=== PATIENT | female | born 1935 | race Caucasian/White ===

== ENCOUNTER → 2018-03-03 | Outpatient (CLI) | payer MEDICARE ==
--- NOTE | 2018-03-03 11:08 | RAD ---
Examination: Bilateral Lower Extremity Venous Doppler Ultrasound History: Bilateral leg edema Comparison: None Procedure: Raymond scale, color flow 2D and spectal waveform analysis images are obtained with and without compression in the area of the common femoral vein, superficial femoral vein - femoral vein junction, main femoral vein (superficial femoral vein) and popliteal vein. Veins of the proximal calf are also imaged. Findings: There is normal duplex flow, color flow and compressibility of all visualized vein segments. No evidence of deep venous thrombus is present. Impression: No evidence of DVT in the visualized bilateral lower extremity venous system. Electronically signed by: Yaya Barcenas MD (03/03/2018 11:04 AM) [facility]
== END | disposition home or self-care (01) ==
LOC: US 09:35
PROVIDERS: ATTEND Family Medicine
DX: R60.0 Localized edema (principal); I10 Essential (primary) hypertension
CPT/HCPCS: 93970

== ENCOUNTER → 2018-03-15 | Outpatient (CLI) | payer MEDICARE ==
[~2018-03-15] MED LIST: IOHEXOL 300 MG/ML 75 ML VIAL. IV ONE
--- NOTE | 2018-03-15 13:10 | RAD ---
CTA chest with contrast Indication: Increased D-Dimer. No SOA or surgery to chest. OMNI 300 75ml . Comparison: No comparison is available. Technique: After intravenous contrast administration, CT imaging was performed of the chest. MIP reconstructions were obtained. Exposure: One or more of the following individualized dose reduction techniques were utilized for this examination: 1. Automated exposure control 2. Adjustment of the mA and/or kV according to patient size 3. Use of iterative reconstruction technique. FINDINGS: Pulmonary arteries: Central arteries are mildly dilated or ectatic. Thoracic aorta: No evidence of aortic aneurysm. Aorta is mildly calcified and ectatic. Due to bolus timing, the aorta is not adequately opacified with contrast to exclude dissection. Thyroid gland: Slightly asymmetric. The right lobe is slightly larger and extends further posterior. Lymph nodes:No significant enlargement Heart: Enlarged. Esophagus: Mild wall thickening. Moderate hiatal hernia. Pleural spaces: No significant effusion Lungs: Mild linear markings compatible with atelectasis or fibrosis. Mild biapical pleural and parenchymal irregularity or scarring. Intrapulmonary bullae at the left lower lobe. Trachea and central airways: Patent Bones: Degenerative spondylosis. Mild anterior loss of height of a midthoracic vertebral body, likely a chronic fracture, as there are no signs of an acute fracture. Upper abdomen: Slices through the upper abdomen are limited due to the technique . There are couple of small subcentimeter low-density lesions of the liver, too small to characterize but would most commonly be benign. IMPRESSION: 1. No evidence of pulmonary embolism. 2. Moderate hiatal hernia. Mild esophageal wall thickening nonspecific, could indicate esophagitis or scarring. Electronically signed by: Luis Quintero MD (03/15/2018 1:06 PM) [facility]
== END | disposition home or self-care (01) ==
LOC: CT 12:14
PROVIDERS: ATTEND Family Medicine
DX: K44.9 Diaphragmatic hernia without obstruction or gangrene (principal); M47.894 Other spondylosis, thoracic region; I77.810 Thoracic aortic ectasia; I10 Essential (primary) hypertension
CPT/HCPCS: 71275; Q9967

== ENCOUNTER → 2019-02-23 | Outpatient (CLI) | payer MEDICARE ==
--- NOTE | 2019-02-23 17:00 | RAD ---
CT LUMBAR SPINE WO CONTRAST Indication: Low back pain Technique: Noncontrast CT imaging was performed of the lumbar spine, multiplanar reconstruction images submitted. One or more of the following individualized dose reduction techniques were utilized for this examination: 1. Automated exposure control 2. Adjustment of the mA and/or kV according to patient size 3. Use of iterative reconstruction technique. Comparison: None Findings: There is lfms-fz-makarzom levoscoliosis centered upon the mid lumbar spine. Lumbar vertebral body stature is maintained. AP alignment is within normal limits. There is relative bone demineralization. There is variable moderate to severe degenerative disc disease greater on the left at L5-S1, also moderate to severe degenerative disc disease at L2-3 and to lesser degree L1-2, L3-4, L4-5. There is sigmoid diverticulosis. There is likely cyst of the posterior right lobe of liver. T12-L1: Spinal canal and neural foramina are adequate. There is mild facet degenerative change. L1-2: There is minimal disc osteophyte complex. There is mild to moderate facet degenerative change. Spinal canal is not significantly narrowed. There is mild to moderate narrowing of the right neural foramen by facet, left neural foramen adequate. L2-3: There is moderate facet hypertrophic change. There is very minimal disc osteophyte complex. Spinal canal is not significantly narrowed, probable minimal narrowing of the right lateral recess. There is very mild posterior narrowing of the right neural foramen by facet, left neural foramen adequate. L3-4: There is moderate facet hypertrophic change. There is minimal disc osteophyte complex. There is likely mild narrowing of the far lateral recesses bilaterally. There is moderate narrowing of the left neural foramen from posteriorly by facet, mild narrowing on the right. L4-5: There is moderate facet hypertrophic change somewhat greater on the left. There is very minimal disc osteophyte complex/partially calcified bulge. There is mild narrowing of the far left lateral recess. Right neural foramen is adequate, moderate to severe narrowing of the left neural foramen primarily from posteriorly by facet. L5-S1: There is mild buckling of the ligamentum flavum and gtba-op-[id number] facet hypertrophic change. There is minimal disc osteophyte complex. Right neural foramen is adequate. There is mild narrowing of the left neural foramen, contact of the exiting left L5 nerve root by disc osteophyte complex extending to extraforaminal region. IMPRESSION: 1. There is lumbar levoscoliosis. There is multilevel variable degenerative disc disease. There is likely mild narrowing of the lateral recesses as stated such as on the right at L2-3, bilaterally at L3-4, and on the left at L4-5. There is neural foramina compromise as stated most notable on the left at L4-5. 2. There is sigmoid diverticulosis. 3. There is bone demineralization. Electronically signed by: Talon Delgado MD (02/23/2019 4:57 PM) [facility]
== END | disposition home or self-care (01) ==
LOC: CT 12:31
PROVIDERS: ATTEND Physician Assistant
DX: M51.37 Other intervertebral disc degeneration, lumbosacral region (principal); M47.816 Spondylosis without myelopathy or radiculopathy, lumbar region; M48.07 Spinal stenosis, lumbosacral region; M25.78 Osteophyte, vertebrae; M89.38 Hypertrophy of bone, other site; M41.86 Other forms of scoliosis, lumbar region; K57.30 Diverticulosis of large intestine without perforation or abscess without bleeding; M53.88 Other specified dorsopathies, sacral and sacrococcygeal region; M53.3 Sacrococcygeal disorders, not elsewhere classified
CPT/HCPCS: 72131

== ENCOUNTER 2019-03-25 15:16 | Emergency (ER) | payer MEDICARE ==
[~2019-03-25] VITALS: Ht 165.1 cm; Wt 67.8 kg
[2019-03-25] MEDS ORDERED: ONDANSETRON PF 4 MG/2 ML VIAL. IV ONE (16:00)
--- NOTE | 2019-03-25 16:06 | RAD ---
Examination: HIP LEFT 2V WITH PELVIS History: Fall, pain Comparison/Correlation: None Findings: Frontal view pelvis, frontal view left hip and crosstable lateral views of the left upper obtained. Total 4 images provided. Osteopenia noted. Oblique fracture involving the left intertrochanteric region appears be present on the basis of the frontal views provided. This finding is well delineated on the crosstable lateral views but is suspected to be anterior in location. Hip joint spaces are symmetric. Sacroiliac joint spaces are symmetric. Impression: Oblique nondisplaced left intertrochanteric fracture appears to be present. Consider further imaging for confirmation of clinically desired. Electronically signed by: Justin Garner MD (03/25/2019 4:03 PM) [facility]
--- NOTE | 2019-03-25 16:20 | PHYS DOC ---
Past History Past Medical History: Bronchitis, Cancer, COPD, Hypertension Past Surgical History: Cancer Surgery, Tonsillectomy Smoking: Non-smoker Alcohol Use: None Drug Use: None Adult General Chief Complaint Chief Complaint: HIP PAIN HPI HPI 83-year-old female presents after fall at home with left hip pain. 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 She was at home and turned to go to another room and she just fell. She denies passing out. She landed on her left side. She was unable to get up off the floor because of significant pain in her left hip. She continued to have her pain for EMS and on arrival to the ED. She denies loss of consciousness or hitting her head. She is not complaining of any other injuries. Review of Systems Review of Systems Constitutional: Denies fever or chills [] Eyes: Denies change in visual acuity, redness, or eye pain [] HENT: Denies nasal congestion or sore throat [] Respiratory: Denies cough or shortness of breath [] Cardiovascular: No additional information not addressed in HPI [] GI: Denies abdominal pain, nausea, vomiting, bloody stools or diarrhea [] : Denies dysuria or hematuria [] Musculoskeletal: Left hip pain[] Integument: Denies rash or skin lesions [] Neurologic: Denies headache, focal weakness or sensory changes [] Endocrine: Denies polyuria or polydipsia [] All other systems were reviewed and found to be within normal limits, except as documented in this note. Current Medications Current Medications Current Medications Medications (Trade) Dose Ordered Sig/Rena Start Time Stop Time Status Last Admin Dose Admin Fentanyl Citrate (Fentanyl 2ml Vial) 75 mcg 1X ONCE 03/25/19 16:00 03/25/19 16:01 DC 03/25/19 16:02 75 MCG Ondansetron HCl (Zofran) 4 mg 1X ONCE 03/25/19 16:00 03/25/19 16:01 DC 03/25/19 16:02 4 MG Allergies Allergies Allergies Coded Allergies Type Severity Reaction Last Updated Verified Sulfa (Sulfonamide Antibiotics) Allergy Intermediate RASH 02/21/14 Yes Physical Exam Physical Exam Constitutional: Well developed, well nourished, no acute distress, non-toxic appearance. [] HENT: Normocephalic, atraumatic, bilateral external ears normal, oropharynx moist, no oral exudates, nose normal. [] Eyes: PERRLA, EOMI, conjunctiva normal, no discharge. [] Neck: Normal range of motion, no tenderness, supple, no stridor. [] Cardiovascular:Heart rate regular rhythm, no murmur [] Lungs & Thorax: Bilateral breath sounds clear to auscultation [] Abdomen: Bowel sounds normal, soft, no tenderness, no masses, no pulsatile kirk s. [] Skin: Warm, dry, no erythema, no rash. [] Back: No tenderness, no CVA tenderness. [] Extremities: Pain with tenderness of the left hip, no obvious deformity.[] Neurologic: Alert and oriented X 3, normal motor function, normal sensory function, no focal deficits noted. [] Psychologic: Affect normal, judgement normal, mood normal. [] Current Patient Data Vital Signs Vital Signs Date Time Temp Pulse Resp B/P (MAP) Pulse Ox O2 Delivery O2 Flow Rate FiO2 03/25/19 16:02 18 03/25/19 15:17 98.0 57 98 Room Air EKG EKG [] Radiology/Procedures Radiology/Procedures [] Course & Med Decision Making Course & Med Decision Making Pertinent Labs and Imaging studies reviewed. (See chart for details) The patient has a left intertrochanteric fracture that is nondisplaced of left femur. The patient would prefer to go to [place] if possible. I will consult the orthopedic surgeon at [facility]. I discussed the patient with Dr. Friedman and he has accepted the patient for orthopedics. We will contact the hospitalist for admission. Dr. Arias has accepted the patient for transfer and admission to [facility]. She will go by ambulance. [] Dragon Disclaimer Dragon Disclaimer This electronic medical record was generated, in whole or in part, using a voice recognition dictation system. Departure Departure: Impression: Primary Impression: Fracture, intertrochanteric, left femur Disposition: [facility] HOSP Condition: STABLE Referrals: ZOFIA SOL MD (PCP) Problem Qualifiers Primary Impression: Fracture, intertrochanteric, left femur Encounter type: initial encounter Fracture type: closed Fracture alignment: nondisplaced Qualified Codes: S72.145A - Nondisplaced intertrochanteric fracture of left femur, initial encounter for closed fracture MONICA HINOJOSA DO Mar 25, 2019 16:20
[2019-03-25 16:21] LABS: BASO % 1 % (0-3); EOS # 0.1 x10^3/uL (0.0-0.7); EOS % 1 % (0-3); HEMATOCRIT 36.4 % (36.0-47.0); HEMOGLOBIN 12.3 g/dL (12.0-15.5); LYMPH # 2.5 x10^3/uL (1.0-4.8); LYMPH % 28 % (24-48); MEAN CORPUSCULAR HEMOGLOBIN 31 pg (25-35); MEAN CORPUSCULAR HGB CONC 34 g/dL (31-37); MEAN CORPUSCULAR VOLUME 91 fL (79-100); MONO # 0.5 x10^3/uL (0.0-1.1); MONO % 6 % (0-9); NEUT # 5.7 x10^3uL (1.8-7.7); NEUT % 64 % (31-73); PLATELET COUNT 254 x10^3/uL (140-400); RED BLOOD COUNT 3.99 x10^6/uL (3.50-5.40); WHITE BLOOD COUNT 8.9 x10^3/uL (4.0-11.0)
--- NOTE | 2019-03-25 16:24 | RAD ---
Examination: CT LOWER EXTREMITY WO LEFT History: Left hip fracture Comparison/Correlation: 03/25/2019 frontal view of pelvis with two-view left hip x-ray exam Findings: Axial images of the left hip were obtained. Sagittal and coronal reformatted images were provided. Nondisplaced fracture of the anterior left intertrochanteric cortex is identified Left hip joint spaces are unremarkable. Visualized soft tissues including musculature is unremarkable. Diverticulosis of the colon is incidentally seen. Sacroiliac joints are symmetric. Osteitis pubis noted. Impression: Nondisplaced acute fracture of the anterior left intertrochanteric trochanteric cortex. PQRS Compliance Statement: One or more of the following individualized dose reduction techniques were utilized for this examination: 1. Automated exposure control 2. Adjustment of the mA and/or kV according to patient size 3. Use of iterative reconstruction technique Electronically signed by: Justin Garner MD (03/25/2019 4:21 PM) [facility]
[2019-03-25 16:27] LABS: ALBUMIN 3.1 g/dL (3.4-5.0); ALBUMIN/GLOBULIN RATIO 0.8 (1.0-1.7); CALCIUM 8.9 mg/dL (8.5-10.1); CREATININE 1.1 mg/dL (0.6-1.0); GFR 47.7; POTASSIUM 3.9 mmol/L (3.5-5.1); TOTAL BILIRUBIN 0.5 mg/dL (0.2-1.0); TOTAL PROTEIN 6.8 g/dL (6.4-8.2)
--- NOTE | 2019-03-25 16:30 | RAD ---
CHEST AP ONLY History: Left hip fracture. Comparison: CT March 15, 2018 Findings: No consolidation or pleural effusion. Normal heart size. Bilateral acromioclavicular DJD. Impression: 1. No acute cardiopulmonary process. Electronically signed by: Jacky Villasenor DO (03/25/2019 4:27 PM) [facility]
[2019-03-25] MEDS ORDERED: METO50TA29 PO (16:45)
[2019-03-25] MEDS ORDERED: LISI-334 PO (16:45)
[2019-03-25] MEDS ORDERED: MECL25TA3 PO (16:46)
[2019-03-25] MEDS ORDERED: MELO15TA23 PO (16:46)
[2019-03-25 17:30] LABS: BILIRUBIN,URINE NEG (NEG); CLARITY,URINE CLEAR; COLOR,URINE YELLOW; GLUCOSE,URINE NEG (NEG)
[2019-03-25 17:31] LABS: BACTERIA,URINE 0 /HPF (0-FEW); NITRITE,URINE NEG (NEG); SQUAMOUS EPITHELIAL CELL,UR FEW /LPF; UROBILINOGEN,URINE 0.2 mg/dL (0.2 mg/dL); WBC,URINE OCC /HPF (0-4)
[2019-03-25 17:44] VITALS: BP 152/70
== END 2019-03-25 17:53 | disposition short-term general hospital (02) ==
LOC: ER 15:16
DX: S72.145A Nondisplaced intertrochanteric fracture of left femur, initial encounter for closed fracture (principal); J44.9 Chronic obstructive pulmonary disease, unspecified; I10 Essential (primary) hypertension; Z88.2 Allergy status to sulfonamides; W18.39XA Other fall on same level, initial encounter; Y93.89 Activity, other specified; Y92.098 Other place in other non-institutional residence as the place of occurrence of the external cause; Y99.8 Other external cause status
CPT/HCPCS: 36415; 71045; 73502; 73700; 80053; 81001; 85025; 85610; 85730; 96374; 96375; 96376; 99285; J2405; J3010

== ENCOUNTER → 2019-04-07 | Outpatient (CLI) | payer MEDICARE ==
[2019-03-25 17:44] VITALS: BP 152/70
[~2019-04-07] MED LIST changes: -IOHEXOL 300 MG/ML 75 ML VIAL. IV ONE; +LISI-334 PO; +MECL25TA3 PO; +MELO15TA23 PO; +METO50TA29 PO
--- NOTE | 2019-04-07 15:33 | RAD ---
LEFT LEG VENOUS DOPPLER STUDY: Clinical indications: Left leg swelling and pain. Status post left hip replacement 12 days ago. Findings: Duplex sonography (including valderrama scale evaluation and color flow and waveform spectral analysis) of the proximal aspect of the greater saphenous vein and the proximal aspect of the profunda femoral vein and the entire length of the common femoral and superficial femoral and popliteal veins and the tibioperoneal trunk and the proximal aspect of the posterior tibial and peroneal veins of the left leg was performed. Normal compressibility, augmentation of color Doppler flow after calf compression, and respiratory variation of Doppler flow is seen. Thus, there are no sonographic findings of deep venous thrombosis within these veins. Impression: There are no sonographic findings of deep venous thrombosis within the veins discussed above of the left lower extremity. Electronically signed by: Timur King MD (04/07/2019 3:30 PM) [facility]
--- NOTE | 2019-04-07 17:12 | RAD ---
EXAM: AP pelvis, lateral view left hip DATE: 04/07/2019 12:00 AM INDICATION: Left intertrochanteric hip fracture post reduction and fixation COMPARISON: November 23, 2018 FINDINGS/ IMPRESSION: 1. IM nail fixation of the left hip fracture, in near-anatomic alignment without definite hardware complication. 2. Moderate colonic stool content is seen. 3. Leftward curvature of the lumbar spine. 4. Symphysis pubis degenerative changes are seen. Electronically signed by: Osiel Leyva MD (04/07/2019 5:09 PM) [facility]
== END | disposition home or self-care (01) ==
LOC: PMG 13:46
PROVIDERS: ATTEND Orthopaedic Surgery
DX: S72.145D Nondisplaced intertrochanteric fracture of left femur, subsequent encounter for closed fracture with routine healing (principal); M79.89 Other specified soft tissue disorders; X58.XXXD Exposure to other specified factors, subsequent encounter; Z96.642 Presence of left artificial hip joint
CPT/HCPCS: 73501; 93971

== ENCOUNTER → 2019-06-09 | Outpatient (CLI) | payer MEDICARE ==
--- NOTE | 2019-06-10 09:49 | RAD ---
Examination: HIP LEFT 2V WITH PELVIS History: Fracture follow-up. Comparison/Correlation: 04/07/2019 x-ray pelvis with lateral view left hip Findings: Frontal view of the pelvis with weightbearing was obtained. Frog-leg lateral view of the left hip was provided. Frontal view of the left hip was provided with weightbearing. Proximal left femoral intramedullary kevin with compression screw are present. Osteopenia noted. No displaced fracture or bony destruction. Degenerative changes of the symphysis pubis noted. Degenerative sclerosis of the superior aspect of the right sacroiliac joint noted. Impression: Stable postoperative findings. Interval healing of the intertrochanteric fracture is evident. Fracture line is not well delineated at this time. Electronically signed by: Justin Garner MD (06/10/2019 9:46 AM) [facility]
== END | disposition home or self-care (01) ==
LOC: DXRAD 12:53
PROVIDERS: ATTEND Orthopaedic Surgery
DX: S72.145D Nondisplaced intertrochanteric fracture of left femur, subsequent encounter for closed fracture with routine healing (principal); M85.88 Other specified disorders of bone density and structure, other site; X58.XXXD Exposure to other specified factors, subsequent encounter
CPT/HCPCS: 73502

== ENCOUNTER 2021-01-09 15:32 | Emergency (ER) | payer MEDICARE ==
[~2021-01-09] VITALS: Ht 165.1 cm; Wt 65.9 kg
[~2021-01-09 15:32] MED LIST changes: -LISI-334 PO; +LISI20TA18 PO; +MECL-75 PO; -MECL25TA3 PO
--- NOTE | 2021-01-09 16:06 | PHYS DOC ---
Past History Past Medical History: Bronchitis, Cancer, COPD, Hypertension, Other (SAM GRIFFITHS APRN) Past Surgical History: Cancer Surgery, Hip Replacement, Tonsillectomy (SAM GRIFFITHS APRN) Smoking: Non-smoker Alcohol Use: None Drug Use: None (SAM GRIFFITHS APRN) General Adult EDM: Chief Complaint: MECHANICAL FALL HPI: HPI: Patient is a 85-year-old female who presents with laceration to the back of her head after a fall at home. Patient states "I was trying to move a chair that was on a swivel, and it caused me to fall down and hit my head on a wooden hutch my dining room". "After I hit my head I fell onto my knees". Patient is alert and oriented. Denies loss of consciousness, neck or back pain. Patient denies taking anything for pain prior to arrival. Patient is reporting a headache 01/03. Unknown last tetanus. History of hypertension. (SAM GRIFFITHS APRN) Review of Systems: Review of Systems: Constitutional: Denies fever or chills Eyes: Denies change in visual acuity HENT: Denies nasal congestion or sore throat Respiratory: Denies cough or shortness of breath Cardiovascular: Denies chest pain or edema GI: Denies abdominal pain, nausea, vomiting, bloody stools or diarrhea : Denies dysuria Musculoskeletal: Denies back pain or neck pain Integument: Denies rash Neurologic: Reports headache. Denies focal weakness or sensory changes Endocrine: Denies polyuria or polydipsia Lymphatic: Denies swollen glands Psychiatric: Denies depression or anxiety (SAM GRIFFITHS APRN) Allergies: Allergies: Allergies Coded Allergies Type Severity Reaction Last Updated Verified Sulfa (Sulfonamide Antibiotics) Allergy Intermediate RASH 02/21/14 Yes (SAM GRIFFITHS APRN) Physical Exam: PE: Constitutional: Well developed, well nourished, no acute distress, non-toxic appearance. [] HENT: Normocephalic, atraumatic, bilateral external ears normal, oropharynx moist, no oral exudates, nose normal. [] Eyes: PERRLA, EOMI, conjunctiva normal, no discharge. [] Neck: Normal range of motion, no tenderness, supple, no stridor. [] Cardiovascular:Heart rate regular rhythm, no murmur [] Lungs & Thorax: Bilateral breath sounds clear to auscultation [] Abdomen: Bowel sounds normal, soft, no tenderness, no masses, no pulsatile masses. [] Skin: 2 cm laceration to posterior head Back: No tenderness, no CVA tenderness. [] Extremities: No tenderness, no cyanosis, no clubbing, ROM intact, no edema. [] Neurologic: Alert and oriented X 3, normal motor function, normal sensory function, no focal deficits noted. [] Psychologic: Affect normal, judgement normal, mood normal. [] (SAM GRIFFITHS APRN) Current Patient Data: Vital Signs: Vital Signs Date Time Temp Pulse Resp B/P (MAP) Pulse Ox O2 Delivery O2 Flow Rate FiO2 01/09/21 15:39 97.9 65 18 196/117 (143) 95 Room Air (SAM GRIFFITHS APRN) EKG: EKG: [] (SAM GRIFFITHS APRN) Radiology/Procedures: Radiology/Procedures: 2 inch laceration irrigated, 6 yayo placed [] (SAM GRIFFITHS APRN) Heart Score: C/O Chest Pain: No Risk Factors: Risk Factors: DM, Current or recent (<one month) smoker, HTN, HLP, family history of CAD, obesity. Risk Scores: Score 0 - 3: 2.5% MACE over next 6 weeks - Discharge Home Score 4 - 6: 20.3% MACE over next 6 weeks - Admit for Clinical Observation Score 7 - 10: 72.7% MACE over next 6 weeks - Early Invasive Strategies (SAM GRIFFITHS APRN) Course & Med Decision Making: Course & Med Decision Making Pertinent Labs and Imaging studies reviewed. (See chart for details) [] 85-year-old female who presents with a 2 cm laceration to the back of her head after a fall at home. Patient denies loss of consciousness, neck pain, back pain. Denies bleeding on blood thinners. CT of head and neck negative for intracranial bleeding or fractures. Tetanus administered. Wound irrigated. 6 yayo placed. Patient to call her PCP for follow-up. Ibuprofen and Tylenol at home for discomfort. Gave patient strict return precautions. Patient states that she understands and is okay with discharge plan. (SAM GRIFFITHS APRN) Casandra Disclaimer: Dragmily Disclaimer: This electronic medical record was generated, in whole or in part, using a voice recognition dictation system. (SAM GRIFFITHS APRN) Attending Co-Sign The patient was seen and interviewed as well as examined at the bedside. The chart was reviewed. The case was discussed. Agree with the plan of care. (MONICA HINOJOSA DO) Departure Departure: Impression: Primary Impression: Fall Qualified Codes: W19.XXXA - Unspecified fall, initial encounter Additional Impressions: Laceration of head Qualified Codes: S01.91XA - Laceration without foreign body of unspecified part of head, initial encounter Headache Qualified Codes: R51.9 - Headache, unspecified Disposition: HOME / SELF CARE / HOMELESS Condition: STABLE Referrals: ZOFIA SOL MD (PCP) Patient Instructions: Fall Prevention and Home Safety, [id number] Additional Instructions: You were seen in the emergency room after a fall at home. CT of your head and neck was negative for any intracranial bleeding or fractures. You were given 600 mg of ibuprofen in the emergency room. You can take ibuprofen and Tylenol at home for discomfort. Please return to the emergency room if you have worsening symptoms or concerns. Otherwise follow-up with your PCP. EMERGENCY DEPARTMENT GENERAL DISCHARGE INSTRUCTIONS Thank you for coming to [facility] (ED) today and trusting us with you care. We trust that you had a positivie experience in our Emergency Department. If you wish to speak to the department management, you may call the director at [phone]. YOUR FOLLOW UP INSTRUCTIONS ARE FOLLOWS: 1. Do you have a private Doctor? If you do not have a private doctor, please ask for a resource list of physicians or clinics that may be able to assist you with follow up care. 2. The Emergency Physician has interpreted your x-rays. The X-Ray specialist will also review them. If there is a change in the findings, you will be notified in 48 hours when at all possible. 3. A lab test or culture has been done, your results will be reviewed and you will be notified if you need a change in treatment. ADDITIONAL INSTRUCTIONS AND INFORMATION: 1. Your care today has been supervised by a physician who is specially trained in emergency care. Many problems require more than one evaluation for a complete diagnosis and treatment. We recommend that you schedule your follow up appointment as recommended to ensure complete treatment of you illness or injury. If you are unable to obtain follow up care and continue to have a problem, or if your condition worsens, we recommend that you return to the ED. 2. We are not able to safely determine your condition over the phone nor are we able to give sound medical advice over the phone. For these safety reasons, if you call for medical advice we will ask you to come to the ED for further evaluation. 3. If you have any questions regarding these discharge instructions please call the ED at [phone]. SAFETY INFORMATION: In the interest of safety, wellness, and injury prevention; we encourage you to wear your sealbelt, if you smoke; quite smoking, and we encourage family to use a protective helmet for bicycling and other sporting events that present an increased risk for head injury. IF YOUR SYMPTOMS WORSEN OR NEW SYMPTOMS DEVELOP, OR YOU HAVE CONCERNS ABOUT YOUR CONDITION; OR IF YOUR CONDITION WORSENS WHILE YOU ARE WAITING FOR YOUR FOLLOW UP APPOINTMENT; EITHER CONTACT YOUR PRIMARY CARE DOCTOR, THE PHYSICIAN WHOSE NAME AND NUMBER YOU WERE GIVEN, OR RETURN TO THE ED IMMEDIATELY. SAM GRIFFITHS APRN Jan 09, 2021 16:06 MONICA HINOJOSA DO Jan 10, 2021 06:42
[2021-01-09] MEDS ORDERED: DIPH,PERTUSS(ACELL),TET VAC/PF 0.5 ML SYRINGE. VAX IM ONE (16:15)
--- NOTE | 2021-01-09 16:51 | RAD ---
Exam: CT head and cervical spine INDICATION: Fall TECHNIQUE: Sequential axial images through the head and cervical spine were obtained without the admi nistration of IV contrast. Exposure: One or more of the following in the visualized dose reduction techniques were utilized for this examination: 1. Automated exposure control 2. Adjustment of the MA and/or KV according to patient size 3. Use of iterative of reconstructive technique Comparisons: None FINDINGS: Head: No focal parenchymal lesion or hemorrhage is identified. There is no midline shift or sulcal effaceme nt. No acute vascular territory infarction is identified. Raymond-white distinction is preserved. The ventricular system is within normal limits without compression hydrocephalus. The basal cisterns are well maintained. Extra cranial soft tissue scalp contusion overlying the right occipital region. The visualized portio ns of the paranasal sinuses and mastoid air cells are well-pneumatized. No acute fractures. Cervical spine: Vertebral body heights and alignment are well-maintained. Fracture to the cervical spine is not identified. Mild degenerative disc disease greatest at C4-C5. Mild bilateral facet arthropathy is also noted at t he same level greater on the right. Visualized paraspinal soft tissues are unremarkable. IMPRESSION: 1. Extra soft tissue scalp contusion overlying the right occipital region. No underlying osseous or intracranial abnormality. 2. Negative CT C-spine for acute traumatic injury. Electronically signed by: Alexandr Shane MD (01/09/2021 4:48 PM) [facility]
[2021-01-09] MEDS ORDERED: IBUPROFEN 600 MG TABLET. PO ONE (17:15)
[2021-01-09 17:40] VITALS: BP 178/81
== END 2021-01-09 17:57 | disposition home or self-care (01) ==
LOC: ER 15:32
DX: S01.01XA Laceration without foreign body of scalp, initial encounter (principal); R51.9 Headache, unspecified; J44.9 Chronic obstructive pulmonary disease, unspecified; I10 Essential (primary) hypertension; Z88.2 Allergy status to sulfonamides; W18.39XA Other fall on same level, initial encounter; Y93.89 Activity, other specified; Y92.098 Other place in other non-institutional residence as the place of occurrence of the external cause; Y99.8 Other external cause status
CPT/HCPCS: 12001; 70450; 72125; 90471; 90715; 99285-25

== ENCOUNTER → 2021-08-05 | Outpatient (CLI) | payer MEDICARE ==
--- NOTE | 2021-08-05 13:53 | RAD ---
EXAM: Pelvis and bilateral hips, 3 views. HISTORY: Pain. COMPARISON: None. FINDINGS: A frontal view the pelvis and 2 views of both hips are obtained. There is a right hip arthr oplasty in expected position. There is no evidence of arthroplasty loosening or periprosthetic fractu re. There is no asymmetric liner wear or particle disease. There is internal fixation of a healed pro ximal left femoral fracture. There is mild marginal left acetabular and femoral head spurring and sub chondral cyst formation. There is degenerative change involving the visualized lower lumbar spine. IMPRESSION: 1. Right hip arthroplasty in expected position 2. Internal fixation of a healed proximal left femoral fracture. 3. Mild left hip osteoarthritis. Electronically signed by: Sonya Loving MD (08/05/2021 1:50 PM) [id number]
== END ==
LOC: RAD 12:54
PROVIDERS: ATTEND Physician Assistant
DX: M16.12 Unilateral primary osteoarthritis, left hip (principal); M76.892 Other specified enthesopathies of left lower limb, excluding foot; M47.816 Spondylosis without myelopathy or radiculopathy, lumbar region; Z96.641 Presence of right artificial hip joint
CPT/HCPCS: 73521

== ENCOUNTER 2021-10-16 07:43 | Inpatient (IN) | payer MEDICARE ==
[~2021-10-16] VITALS: Ht 165.1 cm; Wt 65.4 kg
[2021-10-16 09:10] LABS: BASO # 0.1 x10^3/uL (0.0-0.2); BASO % 1 % (0-3); EOS # 0.1 x10^3/uL (0.0-0.7); EOS % 1 % (0-3); HEMATOCRIT 32.6 % (36.0-47.0); HEMOGLOBIN 10.7 g/dL (12.0-15.5); LYMPH # 1.8 x10^3/uL (1.0-4.8); LYMPH % 21 % (24-48); MEAN CORPUSCULAR HEMOGLOBIN 29 pg (25-35); MEAN CORPUSCULAR HGB CONC 33 g/dL (31-37); MEAN CORPUSCULAR VOLUME 88 fL (79-100); MONO # 0.7 x10^3/uL (0.0-1.1); MONO % 8 % (0-9); NEUT # 6.1 x10^3uL (1.8-7.7); NEUT % 69 % (31-73); PLATELET COUNT 396 x10^3/uL (140-400); RED BLOOD COUNT 3.72 x10^6/uL (3.50-5.40); RED CELL DISTRIBUTION WIDTH 15.6 % (11.5-14.5); WHITE BLOOD COUNT 8.8 x10^3/uL (4.0-11.0)
--- NOTE | 2021-10-16 09:23 | RAD ---
US BILATERAL LOWEREXTREMITY VENOUS DOPPLER History: Reason: leg swelling Comparison: None. Technique: Multiple longitudinal and transverse high resolution real-time images of the venous system of bilateral lower extremity were obtained with color and Doppler sampling. Findings: Patent common femoral, deep femoral, superficial femoral, and popliteal veins. Peroneal veins not wel l seen. No definite deep vein thrombosis. Bilateral lower extremity subcutaneous edema. Impression: 1. No evidence of deep vein thrombosis. 2. Bilateral lower extremity subcutaneous edema. Electronically signed by: Jacky Villasenor DO (10/16/2021 9:20 AM) [id number]
--- NOTE | 2021-10-16 09:29 | PHYS DOC ---
Past History Past Medical History: Bronchitis, Cancer, COPD, Hypertension, Other Additional Past Medical Histor: Meniere's Past Surgical History: Cancer Surgery, Hip Replacement, Tonsillectomy Smoking: Non-smoker Alcohol Use: None Drug Use: None General Adult EDM: Chief Complaint: LOWER EXTREMITY EDEMA HPI: HPI: 86 yo F PMH COPD, hypertension and Mnire's disease, presents to the ED with her son, (patient consents to his/her/their knowledge and involvement in pts' medical care), c/o of bilateral lower extremity swelling, now with worsening redness to both legs. States she follows Dr. Russell and was started on Lasix 40 mg daily in August. Also believes she was on antibiotic but cannot recall the name of it. States she had Covid 5 weeks ago. Review of Systems: Review of Systems: Constitutional: Denies fever or chills Eyes: Denies change in visual acuity HENT: Denies nasal congestion or sore throat Respiratory: Denies cough or shortness of breath Cardiovascular: Denies chest pain or syncope GI: Denies nausea or vomiting : Denies dysuria or hematuria Musculoskeletal: Denies back pain or joint pain Integument: Denies diaphoresis or blistering lesions Neurologic: Denies headache, focal weakness or sensory changes Endocrine: Denies polyuria or polydipsia Lymphatic: Denies swollen glands Psychiatric: Denies depression or anxiety Current Medications: Current Meds: Current Medications Medications (Trade) Dose Ordered Sig/Rena Start Time Stop Time Status Last Admin Dose Admin Furosemide (Lasix) 80 mg 1X ONCE 10/16/21 09:45 10/16/21 09:46 Allergies: Allergies: Allergies Coded Allergies Type Severity Reaction Last Updated Verified Sulfa (Sulfonamide Antibiotics) Allergy Intermediate RASH 10/16/21 Yes Physical Exam: PE: Constitutional: Well developed, well nourished, no acute distress, non-toxic appearance. HENT: Normocephalic, atraumatic, Eyes: EOMI, conjunctiva normal, no discharge. Neck: Normal range of motion, supple, Cardiovascular: S1/2 present, regular rhythm Lungs & Thorax: Speaking in full sentences, bilateral equal chest rise, no tachypnea or increased work of breathing Abdomen: soft, no tenderness, Skin: Warm, dry, Extremities: No tenderness, no cyanosis, warm/red pitting bilateral lower extremity edema with wheeping, right leg larger than left, pedal edema present, circumferential erythema of both legs Neurologic: Alert and oriented X 3, normal motor function, normal sensory function, no focal deficits noted. [] Psychologic: Affect normal, judgement normal, mood normal. [] Current Patient Data: Labs: Laboratory Tests Test 10/16/21 08:30 White Blood Count 8.8 x10^3/uL (4.0-11.0) Red Blood Count 3.72 x10^6/uL (3.50-5.40) Hemoglobin 10.7 g/dL (12.0-15.5) L Hematocrit 32.6 % (36.0-47.0) L Mean Corpuscular Volume 88 fL (79-100) Mean Corpuscular Hemoglobin 29 pg (25-35) Mean Corpuscular Hemoglobin Concent 33 g/dL (31-37) Red Cell Distribution Width 15.6 % (11.5-14.5) H Platelet Count 396 x10^3/uL (140-400) Neutrophils (%) (Auto) 69 % (31-73) Lymphocytes (%) (Auto) 21 % (24-48) L Monocytes (%) (Auto) 8 % (0-9) Eosinophils (%) (Auto) 1 % (0-3) Basophils (%) (Auto) 1 % (0-3) Neutrophils # (Auto) 6.1 x10^3uL (1.8-7.7) Lymphocytes # (Auto) 1.8 x10^3/uL (1.0-4.8) Monocytes # (Auto) 0.7 x10^3/uL (0.0-1.1) Eosinophils # (Auto) 0.1 x10^3/uL (0.0-0.7) Basophils # (Auto) 0.1 x10^3/uL (0.0-0.2) Vital Signs: Vital Signs Date Time Temp Pulse Resp B/P (MAP) Pulse Ox O2 Delivery O2 Flow Rate FiO2 10/16/21 07:56 98.3 77 16 153/77 (102) 99 Room Air EKG: EKG: [] Radiology/Procedures: Radiology/Procedures: []IMAGING REPORT Signed PATIENT: ELIE MORILLO ACCOUNT: [id number] : 1935 LOCATION: ER AGE: 86 SEX: F EXAM STATUS: REG ER ORD. PHYSICIAN: GENE SINGER DO REASON: leg swelling, r/o dvt PROCEDURE: VENOUS LOWER EXT BILATERAL US BILATERAL LOWEREXTREMITY VENOUS DOPPLER History: Reason: leg swelling Comparison: None. Technique: Multiple longitudinal and transverse high resolution real-time images of the venous system of bilateral lower extremity were obtained with color and Doppler sampling. Findings: Patent common femoral, deep femoral, superficial femoral, and popliteal veins. Peroneal veins not well seen. No definite deep vein thrombosis. Bilateral lower extremity subcutaneous edema. Impression: 1. No evidence of deep vein thrombosis. 2. Bilateral lower extremity subcutaneous edema. Electronically signed by: Jacky Villasenor DO (10/16/2021 9:20 AM) [id number] DICTATED AND SIGNED BY: JACKY VILLASENOR DO DATE: 10/16/21916 CC: ZOFIA SOL MD; GENE SINGER DO ~ Heart Score: C/O Chest Pain: No Risk Factors: Risk Factors: DM, Current or recent (<one month) smoker, HTN, HLP, family history of CAD, obesity. Risk Scores: Score 0 - 3: 2.5% MACE over next 6 weeks - Discharge Home Score 4 - 6: 20.3% MACE over next 6 weeks - Admit for Clinical Observation Score 7 - 10: 72.7% MACE over next 6 weeks - Early Invasive Strategies Course & Med Decision Making: Course & Med Decision Making Pertinent Labs and Imaging studies reviewed. (See chart for details) Concern for lower extremity cellulitis with bilateral pitting edema. Patient was treated with antibiotics and Lasix in the emergency department. Will admit for further medical management-accepted by Dr. Russell. Patient stable time of admission agrees with this plan. I have spoken with the patient and/or caregivers. I have explained the patient's condition, diagnosis and treatment plan based on the information available to me at this time. I have answered the patient's and/or caregivers questions and answered any concerns. The patient and/or caregivers have as good an understanding of the patient's diagnosis, condition and treatment plan as can be expected at this point. The patient has been stabilized within the capability of the emergency department. The patient will be transported for further care and management or will be moved to an observation or inpatient service. I have communicated with the staff or medical practitioner taking over this patient's care. [place] Disclaimer: Casandra Disclaimer: This electronic medical record was generated, in whole or in part, using a voice recognition dictation system. Departure Departure: Impression: Primary Impression: Bilateral cellulitis of lower leg Additional Impression: Bilateral lower extremity edema Disposition: ADMITTED INPATIENT Admitting Physician: Zofia Sol Condition: STABLE Referrals: ZOFIA SOL MD (PCP) [facility] DO Oct 16, 2021 09:29
[2021-10-16] MEDS ORDERED: FUROSEMIDE 100 MG/10 ML VIAL IVP ONE (09:45)
[2021-10-16 09:52] LABS: CALCIUM 8.6 mg/dL (8.5-10.1); CREATININE 1.1 mg/dL (0.6-1.0); GFR 47.3; POTASSIUM 3.9 mmol/L (3.5-5.1)
[2021-10-16 09:58] LABS: ALBUMIN 2.4 g/dL (3.4-5.0); ALBUMIN/GLOBULIN RATIO 0.6 (1.0-1.7); TOTAL BILIRUBIN 0.4 mg/dL (0.2-1.0); TOTAL PROTEIN 6.7 g/dL (6.4-8.2)
[2021-10-16] MEDS ORDERED: VANCOMYCIN PER PHARMACY MC PRN (11:45)
[2021-10-16] MEDS ORDERED: VANCOMYCIN 1.5 GM in IV NORMAL SALINE 500ML 500 ML IV ONE (12:00)
[2021-10-16] MEDS ORDERED: FUROSEMIDE (15:03)
[2021-10-16 15:09] VITALS: BP 137/64
[2021-10-16] MEDS ORDERED: FURO40TA4 PO (16:33)
[2021-10-16 20:10] VITALS: BP 113/64
[2021-10-17 05:00] VITALS: BP 147/65
[2021-10-17 07:00] VITALS: BP 133/61
[2021-10-17] MEDS ORDERED: MORPHINE SULFATE 2 MG/ML DISP.SYRIN. IV PRN (10:30)
[2021-10-17] MEDS: FUROSEMIDE 20 MG TABLET PO SCH (10:38)
[2021-10-17] MEDS: MECLIZINE 12.5 MG TABLET. PO PRN ×2 (10:38→20:38)
[2021-10-17] MEDS: METOPROLOL SUCC 24HR ER 50 MG TAB.ER.24H. PO SCH (10:39)
[2021-10-17 11:07] VITALS: BP 125/64
[2021-10-17] MEDS ORDERED: ACETAMINOPHEN 325 MG TABLET PO PRN (12:15)
[2021-10-17] MEDS: traMADol 50 MG TABLET PO PRN ×2 (12:42→20:38)
[2021-10-17] MEDS ORDERED: VANCOMYCIN 1 GM in IV NORMAL SALINE 250ML 250 ML IV SCH (13:00)
--- NOTE | 2021-10-17 13:00 | HP ---
DATE OF SERVICE: 10/17/2021 ADMIT DATE: 10/16/2021 HISTORY OF PRESENT ILLNESS: An 86-year-old female came in with severe swollen legs, bilateral infections, cellulitis, redness, extreme heat, painful for the last week or so, been treated with oral outpatient antibiotics, but becoming increasingly worse despite oral outpatient therapy. The patient was started on Lasix and oral Keflex, but no relief. The patient has become increasingly worse. The patient as a result of this was brought in through the Emergency Room because of increased pain, redness, swelling, chills. The patient was admitted to the hospital for further evaluation and treatment of her cellulitis, bilateral cellulitis to her leg swelling and the like, as well as the possibility of an infection getting worse as indicated. PAST MEDICAL HISTORY: Includes that of vascular disease, skin cancer, joint replacement of right hip, orthopedic surgery, COPD, hypertension. HEENT; oral disorders. ALLERGIES: SULFUR. MEDICATIONS: Metoprolol, Lasix, meclizine for Meniere's disease. FAMILY HISTORY: Noncontributory. SOCIAL HISTORY: The patient has about 21-wjci-fkof history of smoking, although has not smoked for some time. Denies alcohol or hard drug use. REVIEW OF SYSTEMS: The patient has generalized weakness, some shortness of breath. Denies headaches, visual change, blurred vision, double vision. Denies any melena, hematochezia, hematemesis. Does have severe pain in her legs. Does have some orthopnea, dyspnea, neurologically baseline, although very weak. PHYSICAL EXAMINATION: GENERAL: This is a pleasant white female, looking older than stated age, very weak, tired, frail. VITAL SIGNS: Blood pressure 130/60, respiratory rate 18, pulse 90, temperature 98.4, O2 sat 94% on room air. HEENT: Head atraumatic, normocephalic. Eyes: PERRLA without jaundice. The mouth and throat normal. Poor dentition. NECK: Supple without JVD, carotid or thyromegaly. LUNGS: Diminished, poor movement of air. CARDIOVASCULAR: Regular sinus rhythm, S1, S2, without murmur, rub, thrill, or extra heart sounds. ABDOMEN: Soft, nontender. No rebound or guarding. Positive bowel sounds. No hepatosplenomegaly was noted. EXTREMITIES: No clubbing, cyanosis. The patient's legs show marked redness, swelling, tenderness, +2-3 pitting edema. Marked tenderness, just a touch from the feet up to just below the knees, multiple breaking down of the skin, redness and heat from the skin itself and tenderness. Some streaking noted above the knees as well, ____ possible lymphangitis. IMPRESSION: Cellulitis, bilateral to the legs, unresponsive to oral antibiotics, lymphangitis, poor dentition, severe protein malnutrition, chronic kidney disease stage IIIA, failure of outpatient therapy, IV antibiotic therapy, severe hypertensive urgency (NC), continue to monitor the patient accordingly, make further evaluation on her as indicated. ZIGGY/JUANA/CADEN DR: Susie TID: [id number]
--- NOTE | 2021-10-17 13:30 | RAD ---
XR CHEST 2V Technique: PA and lateral views of the chest were obtained. Clinical History: Dyspnea Comparison: None. Findings: The heart and pulmonary vasculature appear within normal limits. The lungs are clear. The pleural ma rgins are clear. The lungs are hyperinflated. There is a T8 vertebral body compression fracture, lik lulu old. Impression: No acute chest process is seen. Electronically signed by: Eyad Tavares III, MD (10/17/2021 1:28 PM) [facility]
[2021-10-17] MEDS: cloNIDine HCL 0.1 MG TABLET PO SCH ×2 (14:00→22:00)
[2021-10-17 15:39] VITALS: BP 101/58
[2021-10-17 19:00] VITALS: BP 112/64
[2021-10-17] MEDS: LACTOBACILLUS RHAMNOSUS GG 1 CAPSULE. PO SCH (20:38)
--- NOTE | 2021-10-18 03:40 | EKG ---
[address] [address] Test Date: 2021-10-17 Test Time: 22:28:09 Pat Name: ELIE MORILLO Department: Room: 115 A Gender: F Moose Hunter: : 1935 Requested By: ZOFIA SOL Order Number: [id number] Reading MD: Jose Maxwell MD Measurements Intervals [place] Rate: 72 P: MO: QRS: 43 QRSD: 84 T: 34 QT: 394 QTc: 433 Interpretive Statements SR PACS Electronically Signed On 10-22-2021 7:18:25 CDT by Jose Maxwell MD
[2021-10-18 05:00] VITALS: BP 138/68
[2021-10-18] MEDS: cloNIDine HCL 0.1 MG TABLET PO SCH ×3 (05:42→22:32)
[2021-10-18] MEDS: traMADol 50 MG TABLET PO PRN ×2 (05:43→22:32)
[2021-10-18] MEDS: LACTOBACILLUS RHAMNOSUS GG 1 CAPSULE. PO SCH ×2 (09:00→22:31)
[2021-10-18] MEDS: FUROSEMIDE 20 MG TABLET PO SCH (09:00)
[2021-10-18] MEDS: METOPROLOL SUCC 24HR ER 50 MG TAB.ER.24H. PO SCH (09:00)
[2021-10-18 11:27] VITALS: BP 102/59
[2021-10-18 13:07] LABS: VANC TR 5.8 mcg/mL (10.0-20.0)
[2021-10-18 16:02] VITALS: BP 119/61
[2021-10-18 19:21] VITALS: BP 123/64
[2021-10-18] MEDS: MECLIZINE 12.5 MG TABLET. PO PRN (22:57)
[2021-10-19] MEDS: cloNIDine HCL 0.1 MG TABLET PO SCH ×3 (05:34→21:29)
[2021-10-19 05:51] VITALS: BP 99/61
[2021-10-19] MEDS: LACTOBACILLUS RHAMNOSUS GG 1 CAPSULE. PO SCH ×2 (09:09→21:28)
[2021-10-19] MEDS: METOPROLOL SUCC 24HR ER 50 MG TAB.ER.24H. PO SCH (09:10)
[2021-10-19] MEDS: FUROSEMIDE 20 MG TABLET PO SCH (09:10)
[2021-10-19] MEDS: MECLIZINE 12.5 MG TABLET. PO PRN (17:12)
[2021-10-19 17:26] VITALS: BP 165/67
[2021-10-19 19:40] VITALS: BP 106/59
[2021-10-19] MEDS: traMADol 50 MG TABLET PO PRN (21:29)
--- NOTE | 2021-10-20 02:10 | PN ---
DATE: 10/18/2021 SUBJECTIVE: An 86-year-old female with bilateral cellulitis to her legs and marked lymphedema, resting somewhat comfortably, making some progress overall. OBJECTIVE: VITAL SIGNS: Blood pressure 123/64, respiratory rate 18, pulse 74, afebrile. LUNGS: Diminished, but clear. CARDIOVASCULAR: Stable. ABDOMEN: Soft. EXTREMITIES: Legs less swollen. Continue on IV Ancef there, making some good progress, has really progressed there. The patient has tube stockings on, +1 to 2 pitting edema. IMPRESSION: Cellulitis, bilateral legs, unresponsive to oral antibiotics; lymphangitis, poor dentition, severe protein malnutrition, chronic kidney disease, failure to thrive; ____ outpatient therapy, IV antibiotic therapy and severe hypertension, hypertensive urgency, under better control at the present time. ZIGGY/RONAL/TARA DR: ZIGGY/andrew TID: [id number]
--- NOTE | 2021-10-20 03:20 | PN ---
SUBJECTIVE: An 86-year-old female in with bilateral cellulitis to her legs. The patient is resting fairly comfortably, making fairly good progress overall. Continue to receive IV antibiotic therapy. The patient is still mobilizing. OBJECTIVE: VITAL SIGNS: Blood pressure is a little bit on the low side (NC) 99/61, respiratory rate 18, pulse 70, afebrile, oxygen saturation only 91% on room air. GENERAL: The patient is alert and oriented. LUNGS: Diminished, but clear. CARDIOVASCULAR: Stable. ABDOMEN: Soft, nontender. EXTREMITIES: Legs still look dry, but markedly improved with the infection that seems to be resolving and we are making good progress along those lines there. IMPRESSION: Therefore, bilateral cellulitis, hypotension, positive COVID test. PLAN: We will continue to be monitored on her on that and make further evaluation on her. She is pretty much asymptomatic with that element, anyway she is not having much in the way of any respiratory distress that is for sure. ZIGGY/CLARE/GRUPO DR: Susie TID: [id number]
[2021-10-20 04:31] VITALS: BP 114/69
[2021-10-20] MEDS: METOPROLOL SUCC 24HR ER 25 MG TAB.ER.24H. PO SCH ×2 (08:26→09:00)
[2021-10-20] MEDS: LACTOBACILLUS RHAMNOSUS GG 1 CAPSULE. PO SCH ×2 (08:27→21:00)
[2021-10-20] MEDS: FUROSEMIDE 20 MG TABLET PO SCH (08:27)
[2021-10-20] MEDS: cloNIDine HCL 0.1 MG TABLET PO SCH ×2 (08:28→21:00)
[2021-10-20] MEDS ORDERED: HYDROcodone/APAP 7.5/325MG 1 TAB TABLET PO PRN ×2 (10:30→10:45)
[2021-10-20 11:34] VITALS: BP 97/58
[2021-10-20] MEDS: MECLIZINE 12.5 MG TABLET. PO PRN (13:39)
[2021-10-20 20:10] VITALS: BP 132/68
--- NOTE | 2021-10-21 03:02 | PN ---
SUBJECTIVE: An 86-year-old female in with bilateral cellulitis of her legs. She has had a previous COVID-19 positive test. This was about a month ago, but still showing positive, now she is basically asymptomatic. She has been afebrile and has no respiratory symptoms to speak of. Imaging is negative. Her respiratory effort is negative. In any case, the patient's legs are improving with IV antibiotic therapy. We are trying to get her move around. PT, OT. OBJECTIVE: VITAL SIGNS: Blood pressure 130/70, respiratory rate 20, pulse 70, 98 degrees, 95% on room air. GENERAL: The patient is alert and oriented. LUNGS: Clear. CARDIOVASCULAR: Stable. ABDOMEN: Soft, nontender. EXTREMITIES: Legs showed diminishment of her erythema to her legs consistent with improvement of her bilateral cellulitis. IMPRESSION: Bilateral cellulitis, unresponsive to oral antibiotics. Poor dentition. Severe protein malnutrition, chronic kidney disease, failure to thrive. Continue with IV antibiotic therapy. PLAN: We will continue to monitor her blood pressure. CRISTELA/CADEN DR: Susie TID: [id number]
[2021-10-21 05:36] VITALS: BP 107/59
[2021-10-21 06:20] LABS: BASO % 1 % (0-3); EOS # 0.1 x10^3/uL (0.0-0.7); EOS % 2 % (0-3); HEMATOCRIT 26.6 % (36.0-47.0); HEMOGLOBIN 8.6 g/dL (12.0-15.5); LYMPH # 2.5 x10^3/uL (1.0-4.8); LYMPH % 34 % (24-48); MEAN CORPUSCULAR HEMOGLOBIN 28 pg (25-35); MEAN CORPUSCULAR HGB CONC 32 g/dL (31-37); MEAN CORPUSCULAR VOLUME 87 fL (79-100); MONO # 0.7 x10^3/uL (0.0-1.1); MONO % 10 % (0-9); NEUT # 3.8 x10^3uL (1.8-7.7); NEUT % 53 % (31-73); PLATELET COUNT 331 x10^3/uL (140-400); RED BLOOD COUNT 3.06 x10^6/uL (3.50-5.40); WHITE BLOOD COUNT 7.2 x10^3/uL (4.0-11.0)
[2021-10-21 06:44] LABS: ALBUMIN 1.6 g/dL (3.4-5.0); ALBUMIN/GLOBULIN RATIO 0.5 (1.0-1.7); CALCIUM 8.1 mg/dL (8.5-10.1); CREATININE 0.8 mg/dL (0.6-1.0); GFR 68.3; POTASSIUM 4.3 mmol/L (3.5-5.1); TOTAL BILIRUBIN 0.4 mg/dL (0.2-1.0); TOTAL PROTEIN 4.9 g/dL (6.4-8.2)
[2021-10-21] MEDS: MECLIZINE 12.5 MG TABLET. PO PRN (08:44)
[2021-10-21] MEDS: cloNIDine HCL 0.1 MG TABLET PO SCH (09:00)
[2021-10-21] MEDS: FUROSEMIDE 20 MG TABLET PO SCH (09:00)
[2021-10-21] MEDS: METOPROLOL SUCC 24HR ER 25 MG TAB.ER.24H. PO SCH (09:00)
[2021-10-21] MEDS ORDERED: CITALOPRAM 10 MG TABLET. PO SCH (09:45)
[2021-10-21] MEDS: LACTOBACILLUS RHAMNOSUS GG 1 CAPSULE. PO SCH (10:41)
[2021-10-21 12:26] VITALS: BP 113/52
--- NOTE | 2021-10-21 14:55 | DISCH ---
HOME HEALTH DISCHARGE/MEDS DISCHARGE INFORMATION: Discharge Date: Oct 21, 2021 Final Diagnosis: Problems Medical Problems: (1) Bilateral cellulitis of lower leg Status: Acute (2) Bilateral lower extremity edema Status: Acute Condition on Discharge: Stable CODE STATUS: Code Status: Full HOME HEALTH: Face to Face: I certify this patient is under my care and that I, or a nurse practitioner or physician's web production assistant working with me, had a face to face encounter that meets the physician face to face encounter requirements with this patient on October 21, 2021 Medical Condition(s): COPD, HTN, Other (Bilateral cellulitis lower extremities) Half-Way For: Assess Cardiopulm Status, Assess & Educate Safety, Assess/Skilled Observatio, Medication Management, Pain Management, Wound Care POST DISCHARGE ORDERS: Activity Instructions for Disc: Activity as tolerated Weight Bearing Status after Di: No restrictions DIET AFTER DISCHARGE: Cardiac CHECKS AFTER DISCHARGE: Checks after discharge: Check blood press - daily, Weigh Yourself Daily CERTIFICATION STATEMENT: Certification Statement: Based on the above finding, I certify that this patient is confined to the home and needs intermittent longterm care, physical therapy and/or speech therapy, or continues to need occupational therapy.~ This patient is under my care, and I have initiated the establishment of the plan of care.~ This patient will be followed by myself or a community physician who will periodically review the plan of care. DISCHARGE MEDICATIONS: Home Meds Reported Medications Meclizine Hcl (MECLIZINE HCL) 25 Mg Tablet, 1 TAB PO PRN TID for DIZZINESS, #30 TAB 03/25/19 Metoprolol Succinate (METOPROLOL SUCCINATE ( XL )) 50 Mg Tab.er.24h, 1 TAB PO DAILY for HTN, #30 TAB 5 Refills 03/25/19 Discontinued Reported Medications Furosemide (FUROSEMIDE) 40 Mg Tablet, 1 TAB PO DAILY for ., #30 TAB 5 Refills 10/16/21 Meloxicam (MELOXICAM) 15 Mg Tablet, 1 TAB PO DAILY for PAIN, #30 TAB 2 Refills 03/25/19 Lisinopril (LISINOPRIL) 20 Mg Tablet, 1 TAB PO DAILY for HTN, #30 TAB 5 Refills 03/25/19 ZOFIA SOL MD Oct 21, 2021 14:55
--- NOTE | 2021-10-21 22:32 | PN ---
SUBJECTIVE: An 86-year-old female with bilateral cellulitis and severe ulcerations of the skin of her lower legs. She has been on wound care. [facility] may have been producing too much of a debridement of the skin on the undersurface of the legs bilaterally as there is a loss of skin. The top part looks dry usually from the [place]na boots. There is a type of dry powdered appearance from the zinc oxide. The undersurface of the legs show a loss of skin and maybe the [employer] nurses are going to send photographs via virtual to the wound care down at [place] to see what they have to offer. Otherwise, the patient is alert and oriented, somewhat depressed. OBJECTIVE: VITAL SIGNS: 107/60, respiratory rate 18, pulse 60, afebrile. Oxygen saturation at 96%. GENERAL: The patient is alert, oriented. LUNGS: Diminished, but clear. CARDIOVASCULAR: Stable. ABDOMEN: Soft, nontender. EXTREMITIES: Legs as described above. IMPRESSION: Bilateral cellulitis, ulceration of the legs, severe protein malnutrition. The patient needs to increase her nutritional intake. Encouraged to do so. Also, chronic renal failure. PLAN: Continue to encourage nutritional supplementation as well as await for wound care suggestions on care of her legs. ZIGGY/KALIE DR: Susie TID: [id number]
== END 2021-10-21 18:45 | disposition home health service (06) | DRG 602 ==
LOC: ER 07:43 → ER HOLD 12:47 → 1 SOUTH 13:18
PROVIDERS: ADMIT Family Medicine; ATTEND Family Medicine
DX: L03.116 Cellulitis of left lower limb (principal); U07.1 COVID-19; E43 Unspecified severe protein-calorie malnutrition; L97.929 Non-pressure chronic ulcer of unspecified part of left lower leg with unspecified severity; L97.919 Non-pressure chronic ulcer of unspecified part of right lower leg with unspecified severity; I12.9 Hypertensive chronic kidney disease with stage 1 through stage 4 chronic kidney disease, or unspecified chronic kidney disease; I89.0 Lymphedema, not elsewhere classified; L03.115 Cellulitis of right lower limb; I16.0 Hypertensive urgency; I95.9 Hypotension, unspecified; Z96.641 Presence of right artificial hip joint; N18.31 Chronic kidney disease, stage 3a; J44.9 Chronic obstructive pulmonary disease, unspecified; Z88.2 Allergy status to sulfonamides; Z87.891 Personal history of nicotine dependence; Z85.828 Personal history of other malignant neoplasm of skin; Z68.24 Body mass index [BMI] 24.0-24.9, adult; Z79.899 Other long term (current) drug therapy; Z86.16 Personal history of COVID-19
CPT/HCPCS: 36415; 71046; 80053; 80202; 85025; 85610; 85730; 87426; 93005; 93970; 96365; 96375; J0690; J2270; J3010; J3370; J7040; U0003; 97535; 99285-25